=== PATIENT | male | born 1975 | race Caucasian/White ===

== ENCOUNTER 2017-01-10 22:00 | Emergency (ER) | payer OTHER ==
[2017-01-10] MEDS ORDERED: ONDANSETRON HCL IV 4 MG/2 ML VIAL IV ONE (22:20)
[2017-01-10] MEDS ORDERED: 0.9 % SODIUM CHLORIDE 1,000 ML BAG IV ONE (22:20)
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
[2017-01-10] MEDS ORDERED: MORPHINE SULFATE 5 MG/ML PFS IVP ONE (22:27)
[2017-01-10 22:30] LABS: BASO % 0.7 % (0-6); EOS % 0.6 % (0-6); GRAN % 71.4 % (47-80); HEMATOCRIT 45.2 % (42.0-52.0); LYMPH % 20.9 % (16-45); MEAN CELL VOLUME 92.1 fl (81-97); MEAN CORPUSCULAR HEMOGLOBIN 30.5 pg (27-33); MEAN CORPUSCULAR HGB CONC 33.2 g/dl (32-36); MEAN PLATELET VOLUME 9.8 fl (7.4-10.4); MONO % 6.4 % (0-9); PLATELET COUNT 220 K/uL (130-400); RED BLOOD COUNT 4.91 M/uL (4.40-5.70); RED CELL DISTRIBUTION WIDTH 13.5 % (11.5-14.5)
[2017-01-10 22:42] LABS: ALBUMIN 4.4 gm/dL (3.5-5.0); ALKALINE PHOSPHATASE 74 U/L (38-126); ALT/SGPT 37 U/L (21-72); ANION GAP 18.6 (7-16); AST/SGOT 39 U/L (17-59); BILIRUBIN,TOTAL 0.73 mg/dL (0.2-1.3); BLOOD UREA NITROGEN 19 mg/dL (9-20); CARBON DIOXIDE 18.4 mmol/L (22-30); CREATININE 1.1 mg/dL (0.66-1.25); EST GLOMERULAR FILTRATION RATE > 60 ml/min; GLUCOSE,RANDOM 129 mg/dL (70-110); LIPASE 404 U/L (23-300)
[2017-01-10] MEDS ORDERED: TAMSULOSIN HCL 0.4 MG CAP.ER.24H PO ONE (23:12)
[2017-01-10] MEDS ORDERED: KETOROLAC 30 MG/ML VIAL IVP ONE (23:12)
[2017-01-11 00:42] LABS: URINE APPEARANCE CLEAR; URINE BILIRUBIN NEGATIVE (NEGATIVE); URINE BLOOD LARGE (NEGATIVE); URINE COLOR YELLOW; URINE GLUCOSE (UA) NEGATIVE (NEGATIVE); URINE KETONE NEGATIVE (NEGATIVE); URINE LEUKOCYTE ESTERASE NEGATIVE (NEGATIVE); URINE NITRITE NEGATIVE (NEGATIVE); URINE PROTEIN TRACE (NEGATIVE); URINE UROBILINOGEN 0.2 E.U./dL (0.20 - 1.00)
[2017-01-11 00:52] LABS: URINE BACTERIA NONE SEEN; URINE EPITHELIAL CELLS 0 - 2 (FEW); URINE WBC 0 - 2 (0-2/hpf)
[2017-01-11 00:53] LABS: URINE MUCUS LIGHT
[2017-01-11] MEDS ORDERED: HYDROCODONE/APAP 5/325MG TABLET PO ONE (01:00)
[2017-01-11] MEDS ORDERED: ONDANSETRON 4 MG ODT TABLET SL ONE (01:00)
== END 2017-01-11 01:22 | disposition home or self-care (01) ==
LOC: ER 22:00
DX: N20.0 Calculus of kidney (principal); R11.2 Nausea with vomiting, unspecified; R31.29 Other microscopic hematuria
CPT/HCPCS: 99284 ×2; 96374; 96375; 96361; 83690; 85025; 80076; 80048; 81001; 74176; J1885; J2405; J2270; J7030

== ENCOUNTER 2017-01-16 12:40 | Emergency (ER) | payer OTHER ==
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
[2017-01-16 13:33] LABS: URINE APPEARANCE CLEAR; URINE BILIRUBIN NEGATIVE (NEGATIVE); URINE BLOOD NEGATIVE (NEGATIVE); URINE COLOR YELLOW; URINE GLUCOSE (UA) NEGATIVE (NEGATIVE); URINE KETONE NEGATIVE (NEGATIVE); URINE LEUKOCYTE ESTERASE NEGATIVE (NEGATIVE); URINE NITRITE NEGATIVE (NEGATIVE); URINE PROTEIN NEGATIVE (NEGATIVE); URINE UROBILINOGEN 0.2 E.U./dL (0.20 - 1.00)
[2017-01-16 14:00] LABS: BASO % 0.4 % (0-6); EOS % 2.1 % (0-6); GRAN % 54.6 % (47-80); HEMATOCRIT 43.3 % (42.0-52.0); HEMOGLOBIN 14.7 gm/dl (14.0-18.0); LYMPH % 32.8 % (16-45); MEAN CELL VOLUME 89.5 fl (81-97); MEAN CORPUSCULAR HEMOGLOBIN 30.4 pg (27-33); MEAN CORPUSCULAR HGB CONC 33.9 g/dl (32-36); MEAN PLATELET VOLUME 9.5 fl (7.4-10.4); MONO % 10.1 % (0-9); PLATELET COUNT 269 K/uL (130-400); RED BLOOD COUNT 4.84 M/uL (4.40-5.70); RED CELL DISTRIBUTION WIDTH 13.1 % (11.5-14.5); WHITE BLOOD COUNT W/O DIFF 6.8 K/uL (4.2-12.2)
[2017-01-16 14:12] LABS: ANION GAP 12.3 (7-16); BLOOD UREA NITROGEN 15 mg/dL (9-20); CARBON DIOXIDE 26.7 mmol/L (22-30); CREATININE 0.9 mg/dL (0.66-1.25); EST GLOMERULAR FILTRATION RATE > 60 ml/min; GLUCOSE,RANDOM 93 mg/dL (70-110)
[2017-01-16] MEDS ORDERED: KETOROLAC 30 MG/ML VIAL IVP ONE (14:23)
== END 2017-01-16 18:27 | disposition short-term general hospital (02) ==
LOC: ER 12:40
DX: N13.2 Hydronephrosis with renal and ureteral calculous obstruction (principal); Z87.442 Personal history of urinary calculi
CPT/HCPCS: 99284 ×2; 96374; 85025; 80048; 81003; 76775; J1885